=== PATIENT | male | born 1960 | race Caucasian/White ===

== ENCOUNTER 2019-05-14 16:26 | Inpatient (IN) ==
--- NOTE | 2019-05-14 20:10 | Diag Imaging Result Doc PS360 ---
CT ANGIOGRAM PELVIS - 05/14/2019 INDICATION: pseudoaneurysm TECHNIQUE: Axial CT images were obtained after administering intravenous contrast. Three-dimensional angiographic images were generated. COMPARISON: 06/20/2015 FINDINGS: Arising from the lateral surface of the right common femoral artery, there is a tiny channel extending anteriorly filled with active contrast extravasation. This leads to a superficial contrast collection compatible with a pseudoaneurysm. In total the pseudoaneurysm measures 3.8 x 3.7 cm. The vessels otherwise appear unremarkable. No soft tissue gas. Urinary bladder, prostate, and rectum are normal. IMPRESSION: Superficial pseudoaneurysm in the region of the lateral surface of the right common femoral artery. This is caused by a very narrow channel arising from the lateral surface of the right common femoral artery. This report was discussed with Dr. Morales on 05/14/2019 at 8:05 PM and was readback. This exam was performed using automated exposure control, adjustment of mA or kV according to patient size, and/or use of iterative reconstruction technique Electronically signed by Peter Bee 05/14/2019 8:08 PM
[2019-05-15] MEDS: NS 1,000 ML IV SCH ×2 (01:02→13:04)
--- NOTE | 2019-05-15 02:39 | HISTORY AND PHYSICAL ---
CHIEF COMPLAINT: Right groin pain and swelling. HISTORY OF PRESENT ILLNESS: This is a 59-year-old male who underwent left heart catheterization 4 days ago in [place], 2 stents were placed. Over the weekend he has developed bruising, pain and swelling especially in the right groin. He was sent by the journeyman press operator to the vascular lab, which revealed a pseudoaneurysm. The patient complains of some soreness and pain, but it is not severe. He denies any tingling, numbness, loss of feeling or weakness in his right leg. No fever or chills. No chest pain or shortness of breath. No other systemic complaints. PAST MEDICAL HISTORY: Coronary artery disease, hypertension, kidney stones, diverticulitis, hypercholesterolemia, prediabetes, gastroesophageal reflux disease ,arrhythmia. PAST SURGICAL HISTORY: Left inguinal hernia repair, appendectomy, coronary stents placed last week. ALLERGIES: No known drug allergies. SOCIAL HISTORY: Negative for tobacco, alcohol or illicit drug use. FAMILY HISTORY: Positive for coronary artery disease, hypertension, and his father of colon cancer. HOME MEDICATIONS: Losartan/hydrochlorothiazide, Lipitor, aspirin, Celexa, Pepcid, Lopressor, Effient, and ranolazine. REVIEW OF SYSTEMS: Ten systems reviewed and negative except as noted above. PHYSICAL EXAMINATION: GENERAL: This is a 59-year-old male who looks his stated age. He is in no acute distress. HEENT: Normocephalic, atraumatic. Extraocular muscles are intact. Pupils are equal, round and reactive to light. Sclerae are anicteric. Moist mucous membranes. Hearing grossly normal. NEUROLOGIC: Alert and oriented x4. Moves all extremities equally and well. NECK: Supple. No thyromegaly. CV: Regular rate and rhythm. RESPIRATORY: Bilateral breath sounds. No work of breathing. GASTROINTESTINAL: Soft, nontender, nondistended. EXTREMITIES: No clubbing, cyanosis, or edema. He has palpable pedal pulses that are equal. He does have swelling, bruising and a hematoma in the right groin, mildly tender. MUSCULOSKELETAL: Moves all extremities equally and well. LABORATORY DATA: Hemoglobin 14, hematocrit 1.0. IMAGING: Ultrasound was reviewed by me and does show a bilobed pseudoaneurysm and hematoma, the largest aspect of the pseudoaneurysm measures about [address] angiogram was also performed which shows a superficial pseudoaneurysm coming off the right common femoral artery, it measures 3.8 x 3.7 cm. ASSESSMENT AND PLAN: A 59-year-old male with a right femoral artery pseudoaneurysm status post left heart catheterization. He will be admitted for observation overnight and we will plan open surgical repair versus ultrasound-guided thrombin injection tomorrow. cc: Frederick Morales MD
[2019-05-15] MEDS: COZAAR PO SCH (09:25)
[2019-05-15] MEDS: HYDROCHLOROTHIAZIDE PO SCH (09:25)
[2019-05-15] MEDS: LOPRESSOR PO SCH ×2 (09:26→22:58)
[2019-05-15] MEDS: RANEXA PO SCH ×2 (09:38→22:56)
[2019-05-15] MEDS: EFFIENT PO SCH (09:46)
[2019-05-15] MEDS: ASPIRIN PO SCH (09:46)
--- NOTE | 2019-05-15 12:32 | GENERAL SURGERY PROGRESS NOTE ---
DATE: 05/15/2019 SUBJECTIVE: The patient is doing well. No new complaints. OBJECTIVE: He is afebrile. Vital signs are stable. General: He is awake, alert, and oriented x3. No acute distress. GI: Soft, nontender, nondistended. Vascular: His right groin was examined. There is a hematoma and bruising. However, there is not a pulsatile mass or expanding hematoma. No signs of infection. ASSESSMENT AND PLAN: A 59-year-old male with a right femoral artery pseudoaneurysm after left heart catheterization. It is greater than 3 cm. Intervention is indicated. I have offered him open femoral artery repair versus transfer to [place] for ultrasound-guided thrombin injection. We went over the risks and benefits of both, and he prefers to have the open repair done here. He understands the risks and benefits of bleeding, wound infection, deep venous thrombosis, distal embolization, and other imponderables. We are planning this today. cc: Frederick Morales MD
--- NOTE | 2019-05-15 13:13 | CARDIOLOGY CONSULTATION ---
DATE: 05/15/2019 HISTORY OF PRESENT ILLNESS: Patient admitted with right groin pain and swelling, pseudoaneurysm, recent cardiac catheterization. A 59-year-old gentleman underwent left heart catheterization 4 decades ago in [place], had stent placement. Over the weekend, he developed bruising and pain and swelling in the right groin. He was seen in our office, and subsequently set up for ultrasound of his groin, which revealed pseudoaneurysm. The patient also complained of soreness and discomfort in his groin. From a cardiac standpoint, he has significant coronary artery disease, and has undergone multiple stent placements. Since the recent intervention, his symptoms have significantly improved. There is no orthopnea, paroxysmal nocturnal dyspnea. There are no palpitations or syncope. PROBLEM LIST: 1. Coronary artery disease. Underwent cardiac catheterization on 03/15/2019. The patient had LAD proximal 70% stenosis, treated with a drug-eluting stent, had a significant ostial stenosis of the diagonal of 80%, which is a moderate-sized diagonal artery, circumflex 30% stenosis, OM1 marginal had 70% stenosis, treated with a drug-eluting stent, RCA proximal 50% stenosis. Subsequently, the patient continued to have anginal symptoms, and on 05/10/2019, the patient underwent a left heart catheterization and stent placement. His left main artery was normal, left anterior descending artery had a proximal patent stent with diffuse 40% stenosis. First diagonal had an ostial 80% stenosis. The patient underwent a successful bifurcating stent of the left anterior descending artery and diagonal, and a drug-eluting stent to the diagonal artery, in addition to the stent to the left anterior descending artery, which was subsequently post dilated. The patient was discharged home on aspirin and prasugrel. 2. Hypertension. 3. Hyperlipidemia. 4. Gastroesophageal reflux disease. 5. History of urinary calculi. 6. Last LDL cholesterol was 51. HOME MEDICATIONS: Include losartan/hydrochlorothiazide 125 one tablet a day, atorvastatin 80 mg a day, aspirin 81 mg a day, famotidine 40, metoprolol 50 mg p.o. b.i.d., Effient 10 mg, Ranexa 1 tablet 1000 mg b.i.d., and enteric-coated aspirin. ALLERGIES: He is not known to be allergic to any medication. PHYSICAL EXAMINATION: Vital Signs: Blood pressure 109/81. Cardiovascular: Normal jugular venous pressure. There is no thyromegaly. There is no carotid bruit. First and second heart sounds were heard. There was no S3 gallop. Respiratory: Normal air entry. There are no crepitations or rhonchi. Abdomen: Soft, nontender. His groin had hematoma swelling. Extremities: No pedal edema. Peripheral pulses palpable. ASSESSMENT AND PLAN: 1. Mr. Surjit Flores is a 59-year-old, gentleman, who was admitted with pseudoaneurysm. Surgery is planned for today. From a cardiac standpoint, he had a cardiac catheterization on multiple occasions. On 03/15/2019, he underwent drug-eluting stent to left anterior descending artery and obtuse marginal artery. Subsequently, on 05/10/2019, underwent a drug- eluting stent to the diagonal and to the left anterior descending. From a cardiac standpoint, we will continue his aspirin and prasugrel postoperatively. 2. Hypertension. Continue with losartan. 3. Hyperlipidemia. Continue with his atorvastatin. 4. He has chronic angina. Symptomatically, he has significantly improved following recent cardiac catheterization. He is on beta-blockers and Ranexa. I have not made any changes. Thank you for the consult. cc: MD Frederick Schneider MD
[2019-05-15] MEDS ORDERED: NS 1,000 ML ONE (14:35)
[2019-05-15] MEDS ORDERED: SENSORCAINE-MPF 0.5%/EPI 1:200,000 ONE (14:35)
[2019-05-15] MEDS ORDERED: HEPARIN ONE (14:35)
[2019-05-15] MEDS ORDERED: DIPRIVAN 1% ONE (14:53)
[2019-05-15] MEDS ORDERED: KEFZOL 2 GM/D5W 2 GM/50 ML IVPB IV ONE (15:00)
[2019-05-15] MEDS ORDERED: EPHEDRINE ONE (15:05)
[2019-05-15] MEDS ORDERED: ROBINUL ONE (15:12)
[2019-05-15 15:54] LABS: URINE SOURCE CATH
[2019-05-15 15:55] LABS: BILIRUBIN URINE NEGATIVE (NEGATIVE); BLOOD URINE NEGATIVE (NEGATIVE); COLOR YELLOW; GLUCOSE URINE NEGATIVE (NEGATIVE); KETONE URINE NEGATIVE (NEGATIVE); LEUKOCYTES URINE SMALL (NEGATIVE); NITRITE URINE NEGATIVE (NEGATIVE); PROTEIN URINE NEGATIVE (NEGATIVE); SP GRAVITY URINE 1.023; TURBIDITY URINE HAZY (CLEAR); UR EPITHELIAL CELLS <10 /HPF (<10); URINE BACTERIA 4+ /HPF; URINE RBC <10 /HPF (<10); URINE WBC 20-40 /HPF (<10); UROBILINOGEN URINE NORMAL (NORMAL)
[2019-05-15] MEDS: DILAUDID ONE ×4 (16:44→17:04)
--- NOTE | 2019-05-15 19:58 | OPERATIVE NOTE ---
PROCEDURE DATE: 05/15/2019 PREOPERATIVE DIAGNOSIS: Right femoral artery pseudoaneurysm. POSTOP DIAGNOSIS: Right iliac artery pseudoaneurysm. PROCEDURE: Open repair of right iliac artery pseudoaneurysm. SURGEON: Frederick Morales MD. MAILHOUSE OPERATOR: Brandon Chisholm MD. ANESTHESIA: General. ESTIMATED BLOOD LOSS: 100 mL. COMPLICATIONS: None apparent. SPECIMENS: None. FINDINGS: The puncture wound was in the iliac artery just cephalad to the lower part of the inguinal ligament. TECHNIQUE: The patient was brought to the operating room and placed supine on the table. General anesthesia was induced. A Singh catheter was placed. He was prepped and draped in usual sterile fashion. 0.5% Marcaine with epinephrine used to anesthetize the skin and soft tissue over the right groin where an incision was made with a 15 blade. This was carried down through the subcutaneous tissue initially with cautery. We entered the hematoma and evacuated hematoma with suction and with finger enucleation. I then dissected down to the femoral artery distally with the assistance of Dr. Chisholm who was helpful throughout the case with retraction, exposure and assisting with the repair of the artery injury. A couple of subcutaneous small crossing arterial branches were clipped proximally and distally and divided with Alvin and 1 was ligated with 3-0 silk. Once the puncture site wound was found, there was brisk bright red bleeding. This was controlled with direct pressure. Distal to this the femoral artery was dissected out with Metzenbaum scissors and a right angle clamp and a vessel loop was passed around it safely for distal control. Proximally the inguinal ligament had to be partially divided with cautery and then I was able to dissect around the iliac artery proximal to the injury and passed a DeBakey clamp across it and clamped it down. At this point we had good vascular control but we had not controlled the profunda. However, I felt like I could see the arteriotomy and could repair it. A 4-0 Surgipro was used to close the arteriotomy in a [id number] fashion. We then restored distal flow followed by proximal flow. There was no signs of any further bleeding. I did place some Gel-Foam around the repair site. The wound was washed out with saline. There was no signs of any further bleeding. The hematoma was evacuated. I closed the deeps subcutaneous tissues with interrupted 3-0 Polysorb. Superficial subcutaneous tissues were closed in the same fashion. The skin was closed with a running 4-0 subcuticular Biosyn. A sterile dressing was applied. There were no apparent complications. He was awakened in stable condition and transferred to recovery room. cc: Frederick Morales MD [facility]
[2019-05-15] MEDS ORDERED: LIPITOR PO SCH (21:00)
[2019-05-15] MEDS ORDERED: PEPCID PO SCH (21:00)
[2019-05-15] MEDS ORDERED: CELEXA PO SCH (21:00)
[2019-05-16] MEDS: TYLENOL PO PRN ×2 (00:53→06:23)
[2019-05-16] MEDS: NS 1,000 ML IV SCH (06:22)
[2019-05-16 08:09] VITALS: BP 110/60
[2019-05-16] MEDS: ASPIRIN PO SCH (08:52)
[2019-05-16] MEDS: LOPRESSOR PO SCH (08:52)
[2019-05-16] MEDS: EFFIENT PO SCH (08:53)
[2019-05-16] MEDS: HYDROCHLOROTHIAZIDE PO SCH (08:53)
[2019-05-16] MEDS: RANEXA PO SCH (08:53)
[2019-05-16] MEDS: COZAAR PO SCH (08:53)
--- NOTE | 2019-05-16 12:31 | GENERAL SURGERY PROGRESS NOTE ---
DATE: 05/16/2019 SUBJECTIVE: The patient reports soreness in his right groin, but not severe. No bleeding. He is voiding and eating. OBJECTIVE: He is afebrile. Vital signs are stable.General: He is awake, alert, and oriented x3. No acute distress. Extremities: The right groin was examined. It is soft. There is expected bruising. Minimal swelling. No pulsatile mass present. The dressing is clean and dry. ASSESSMENT AND PLAN: A 59-year-old male postoperative day 1 with right iliac artery pseudoaneurysm repair. He is doing well. If he ambulates without difficulty, he will be discharged home. Instructions were given. He will follow up with me in 2 weeks, and his barista. cc: Frederick Morales MD MTDD
== END 2019-05-16 10:47 | disposition home or self-care (01) | DRG 254 ==
LOC: VAS 16:26 → 3N 20:18
PROVIDERS: ADMIT Surgery; ATTEND Surgery